=== PATIENT | male | born 1930 | race Caucasian/White ===

== ENCOUNTER 2017-05-03 14:18 | Emergency (ER) | payer MEDICARE ==
[~2017-05-03] VITALS: Ht 177.8 cm; Wt 78.8 kg
[~2017-05-03 14:18] MED LIST: ADALAT CC PO; ASPIR-8181 MG OR; CARVEDILOL3.125 MG PO; COREG6.25 MG OR; DIGOXIN0.25 MG OR; GLIPIZIDE5 MG PO; GLYB/METFO5 MG/500 M OR; LASIX 40 MG40 MG/TAB PO; LIPITOR20 MG PO; LISINOPRIL5 MG PO; METFORMIN500 MG PO; MONOPRIL10 MG OR; MULTI VIT OR; PERI-COLACE1 TAB OR; PLAVIX75 MG OR; PRAVASTATIN40 MG OR; PROCA PO
[2017-05-03] MEDS ORDERED: MIRALAX3350 N1 PO (17:21)
[2017-05-03] MEDS ORDERED: MAGNESIUM296 ML/BTL PO (17:21)
[2017-05-03] MEDS ORDERED: COLACE100 MG PO (17:21)
[2017-05-03 17:29] VITALS: BP 119/62
== END 2017-05-03 17:35 | disposition home or self-care (01) ==
LOC: ED 14:18
DX: K59.00 Constipation, unspecified (principal)

== ENCOUNTER 2017-07-27 23:33 | Observation (INO) | payer MEDICARE ==
[~2017-07-27] VITALS: Ht 177.8 cm; Wt 82.5 kg
[~2017-07-27 23:33] MED LIST changes: +COLACE100 MG PO; +MAGNESIUM296 ML/BTL PO; +MIRALAX3350 N1 PO
--- NOTE | 2017-07-28 00:04 | NUR ---
BROUGHT TO ROOM 11 VIA W/C. UNABLE TO RECONCILE MEDS AT THIS TIEM. PATIENT DID NOT BRING A MED LIST WITH HIM NOR THE ACTUAL MEDS.
[2017-07-28 00:49] LABS: HEMATOCRIT 36.8 % (39.0-50.0); HEMOGLOBIN 12.2 g/dl (14.0-18.0); IMMATURE GRANULOCYTES 0.4 % (0.0-1.0); MEAN CELL VOLUME 93.6 fL CALC (80.0-100.0); MEAN CORPUSCULAR HGB CONC 33.2 g/L CALC (32.0-36.0); NEUT# 7.27 thou/uL (1.82-7.42); RED BLOOD COUNT 3.93 mill/uL (4.70-6.10); RED CELL DISTRI WIDTH 13.2 % (11.5-15.5)
[2017-07-28 01:03] LABS: ALBUMIN 4.4 g/dL (3.2-5.0); BILIRUBIN, TOTAL 0.5 mg/dL (0.0-1.4); CALCIUM 9.6 mg/dL (8.4-10.2); CREATININE 1.7 mg/dL (0.7-1.3); POTASSIUM 4.4 mmol/l (3.5-5.1); TOTAL PROTEIN 7.2 g/dL (6.3-8.2)
--- NOTE | 2017-07-28 01:05 | NUR ---
#22 IV STARTED IN X 2 ATTEMPTS. PT TOLERATED WELL. PT RESTING IN BED. RESP EVEN AND UNLABORED. NO DISTRESS NOTED. A&O X 3. SKIN W/D. VSS. DENIES PAIN OR OTHER COMPLAINTS AT THIS TIME. INFORMED PT OF PLAN OF CARE AND CONTINUED WAIT TIME AND HE VERBALIZED UNDERSTANDING. CALL LIGHT IN REACH.
--- NOTE | 2017-07-28 01:27 | NUR ---
PT ASSISTED TO BEDSIDE TO USE URINAL. 450 CLEAR, YELLOW URINE OUT.
[2017-07-28 01:51] LABS: URINE BILIRUBIN - DIPSTICK NEGATIVE (NEGATIVE); URINE BLOOD DIPSTICK NEGATIVE (NEGATIVE); URINE CLARITY CLEAR; URINE COLOR YELLOW; URINE GLUCOSE - DIPSTICK NEGATIVE (NEGATIVE); URINE KETONE NEGATIVE (NEGATIVE); URINE LEUK ESTERASE TRACE (NEGATIVE); URINE NITRITE - DIPSTICK NEGATIVE (Negative); URINE PROTEIN - DIPSTICK NEGATIVE (NEG-TRACE); URINE UROBILINOGEN - DIPSTICK 0.2 E.U./dL (0.2)
--- NOTE | 2017-07-28 02:16 | NUR ---
REPORT CALLED TO Huseyin WINSTON LPN.
--- NOTE | 2017-07-28 02:20 | NUR ---
PT CONTINUES RESTING OIN BED W/ NO CHANGE IN ASSESSMENT. RESP REMAIN EVEN AND UNLABORED. DENIES PAIN. CALL LIGHT IN REACH.
--- NOTE | 2017-07-28 02:50 | NUR ---
Admission Note Report Given to: Huseyin WINSTON LPN Transported by: Wheelchair X Stretcher Transported with: X Nurse Transporter X Patent IV X O2 X Vamp Marker
[2017-07-28 03:13] VITALS: BP 140/80
--- NOTE | 2017-07-28 03:13 | NUR ---
86 yr old white male adm icu5 as [place] tele overflow. stood to weigh then to bed. denies resp diff. o2 cont per nc. lungs sound clear bilat. diagnostic cardiac sonographer shows sinus rhythm pvcs occas paced beats. #22 lt hand saline lock. history obtained per pt. oriented to room. fall precautions initiated.
--- NOTE | 2017-07-28 06:00 | NUR ---
awake. sitting on side of bed. denies resp diff. o2 cont.
--- NOTE | 2017-07-28 07:10 | NUR ---
PT SITTING ON THE SIDE OF THE BED, DENIES ANY PAIN OR SOB, A&O X3, PERRL, HR 76, RESP. 20, BP 110/46, O2 95% ON RA, LUNG SOUNDS CLEAR IN ALL SOARES, 22G LH IV SALINE LOCKED, NO REDNESS OR DRAINAGE AT SITE, STRONG RADIAL AND PEDAL PULSES, AM ASSESSMENT COMPLETE, SEE INTERVENTIONS, SAFETY MEASURES REINFORCED, CALL MATTHEW WITHIN REACH
--- NOTE | 2017-07-28 07:55 | NUR ---
PT SITTING UP IN THE RECLINER, TOLERATING WELL, SETUP ASSISTANCE PROVIDED WITH AM MEAL
[2017-07-28 08:00] VITALS: BP 110/46
--- NOTE | 2017-07-28 08:07 | NUR ---
PT SITTING IN THE RECLINER TOLERATING WELL, REMINDED PT TO CALL FOR ASSISTANCE WHEN WANTING TO GET UP DUE TO MONITORING EQUIPMENT AND PT'S SAFETY, PT VERBALIZES UNDERSTANDING, CALL MATTHEW WITHIN REACH
--- NOTE | 2017-07-28 09:00 | NUR ---
DR PARR AT BEDSIDE
--- NOTE | 2017-07-28 09:14 | NUR ---
CALLED DR PARR'S OFFICE SPOKE TO [facility] PER PT REQUEST TO LET THEM KNOW HE WAS IN THE HOSPITAL AND WOULDN'T BE MAKING HIS 9 AM APPOINTMENT
--- NOTE | 2017-07-28 09:18 | NUR ---
DR GALLOWAY AT BEDSIDE DISCUSSING PLAN OF CARE
--- NOTE | 2017-07-28 09:25 | NUR ---
DR GALLOWAY AT BEDSIDE DISCUSSING PLAN OF CARE
[2017-07-28] MEDS ORDERED: ENTRESTO 24-261 TAB PO (09:53)
[2017-07-28] MEDS ORDERED: ALDACTONE25 MG PO (09:54)
[2017-07-28] MEDS ORDERED: TRULICITY1.5 MG/0.5 SC (09:54)
[2017-07-28] MEDS ORDERED: TRESIBA FL100 UNIT/M SC (09:55)
[2017-07-28] MEDS ORDERED: LIPITOR20 MG PO (09:55)
--- NOTE | 2017-07-28 11:30 | NUR ---
DAUGHTER AT BEDSIDE
[2017-07-28 11:32] LABS: TSH, 3RD GENERATION 4.98 uIU/mL (0.47 - 4.68)
--- NOTE | 2017-07-28 11:40 | NUR ---
PT SITTING UP IN THE RECLINER WATCHING TV, VERBALIZES NO COMPLAINTS, SETUP ASSISTANCE PROVIDED WITH LUNCH, PT REMINDED TO CALL FOR ASSISTANCE, CALL MATTHEW WITHIN REACH
--- NOTE | 2017-07-28 14:00 | NUR ---
PT ARRIVED FROM ICU VIA WC ACCOMPANIED BY STAFF. IV SITE IS FREE FROM REDNESS OR EDEMA. CONTINUE TO OSBERVE AND MONITOR. SITTING UP IN THE CHAIR.
[2017-07-28 14:05] VITALS: BP 121/57
[2017-07-28 15:56] VITALS: BP 128/62
--- NOTE | 2017-07-28 18:00 | NUR ---
PT HAS BEEN IN THE SITTING IN THE CHAIR, AND THEN WILL BE IN BED. DAUGHTER FLORA CALLED AND CHECKED ON HER FATHER. IV SITE IS FREE FROM REDNESS OR EDEMA. CONTINUE TO OSBERVE AND MONITOR.
--- NOTE | 2017-07-28 18:11 | NUR ---
PT'S FAMILY STATED" PT HAS NOT ATE VERY MUCH IN A FEW DAYS." ENCOURAGED PT TO EAT SOUP.
--- NOTE | 2017-07-28 19:30 | NUR ---
BEDSIDE REPORT RECEIVED FROM KIANA MEADOWS. PT REPOSITIONING SELF FROM BED TO RECLINTER AT THIS TIME INDPENDENTLY. DENIES PAIN CURRENTLY. STATES THAT HE HAS EXERTIONAL SHORTNESS OF BREATH WITH 2L OF OXYGEN ON VIA NC. PLAN OF CARE DISCUSSED. PT ENCOURAGED TO VERBALIZE CONCERNS. STATES UNDESTANDING. SAFETY MEASURES IN PLACE. CALL LIGHT WITHIN REACH.
[2017-07-28 20:00] VITALS: BP 120/70
[2017-07-29] VITALS: BP 126/66
--- NOTE | 2017-07-29 | NUR ---
PT ASLEEP IN RECLINER AT THIS TIME. NO SIGNS OF DISTRESS NOTED. RESPIRATIONS EVEN AND UNLABORED ON OXYGEN. SAFETY MEASURES IN PLACE. CALL LIGHT WITHIN REACH.
--- NOTE | 2017-07-29 00:05 | NUR ---
IRASEMA,ER MONITOR REPORTED A 12 BEAT RUN OF V-TACH;UPON ENTERING THE ROOM PT ASYMPTOMATIC STATING "I WAS MOVING THE TRASH CAN";VS OBTAINED BY MONICA MOURA BP 131/64 HR 74;PT VOICES NO COMPLAINTS OF PAIN OR DISCOMFORTS;RESPIRATIONS EVEN AND UNLABORED;PT EDUCATED TO CALL FOR ASSISTANCE IF NEEDED;TELE MONITOR IN PLACE;CALL LIGHT IN REACH;WILL CONTINUE TO MONITOR
--- NOTE | 2017-07-29 01:42 | NUR ---
ER CALLED WITH TELEMETRY READING OF 8 RUNS OF VTACH AT 0135. PT ASLEEP AT THIS TIME WITH NO SIGNS OF DISCOMFORT. VS STABLE.
--- NOTE | 2017-07-29 03:18 | NUR ---
PT ASLEEP IN BED NOW. HAS NO COMPLIANTS OR REQUESTS AT THIS TIME. COUGH NOTED. INDEPENDENT IN ROOM. CALL LIGHT WITHIN REACH.
[2017-07-29 05:30] VITALS: BP 116/62
--- NOTE | 2017-07-29 05:43 | NUR ---
PT RESTING COMFORTABLY IN BED ON OXYGEN. USING URINAL AT BEDSIDE TO VOID. IV SITE TO LEFT HAND APPEARS HEALTHY AND FLUSHES. CONDITION APPEARS STABLE. CALL LIGHT WITHIN REACH.
[2017-07-29 06:35] LABS: HEMOGLOBIN 12.8 g/dl (14.0-18.0); IMMATURE GRANULOCYTES 0.4 % (0.0-1.0); MEAN CELL VOLUME 92.5 fL CALC (80.0-100.0); MEAN CORPUSCULAR HGB 31.1 pG CALC (26.0-32.0); MEAN CORPUSCULAR HGB CONC 33.7 g/L CALC (32.0-36.0); NEUT# 9.23 thou/uL (1.82-7.42); RED BLOOD COUNT 4.11 mill/uL (4.70-6.10); RED CELL DISTRI WIDTH 13.2 % (11.5-15.5)
[2017-07-29 06:52] LABS: ALBUMIN 4.2 g/dL (3.2-5.0); CALCIUM 9.3 mg/dL (8.4-10.2); CREATININE 1.6 mg/dL (0.7-1.3)
--- NOTE | 2017-07-29 08:05 | NUR ---
PT SITTING ON SIDE OF BED TO EAT BREAKFAST, DAUGHTER IN TO VISIT. PT ALERT AND ORIENTED X3, DENIES ANY PAIN AT THIS TIME. #22 IN LEFT HAND NO REDNESS OR EDEMATOUS NOTED. LUNG SOUNDS CLEAR BILATERALLY, PERRL, VITALS STABLE, STRONG PEDAL AND RADIAL PULSES, BLANKET WEAVER EQUAL. NO SWELLING TO EXTREMITIES. PT HAS HISTORY OF HEART SURGERY AND HAS A PACEMAKER. PT DENIES ANY SOB. PT DECLINES A SHOWER AT THIS TIME STATING " I WILL BE GOING HOME TODAY SO, I WILL SHOWER AT HOME." PT ENCOURAGED TO SHOWER THIS EVENING IF HE DOESNT RETURN HOME. PT VOICE UNDERSTANDING AND AGREEABLE. PT VOICING NO COMPLAINTS OR NEEDS AT THIS TIME AND ENCOURAGED TO USE CALL MATTHEW.
[2017-07-29 08:10] VITALS: BP 101/68
--- NOTE | 2017-07-29 08:25 | NUR ---
ASSESSMENT IS COMPLETED: IV SITE IS FREE FROM REDNESS OR EDEMA. TELE MONITOR IN PLACE. CONTINUE TO OBSERVE AND MONITOR.
--- NOTE | 2017-07-29 09:40 | NUR ---
PT UP TO RR TO HAVE A BM. NO O2 NEEDED WHILE USING RR. NO EXERTIONAL SOB NOTED. PT BACK TO BED. VOICING NO COMPLAINTS. CALL MATTHEW WITH IN REACH.
--- NOTE | 2017-07-29 11:26 | NUR ---
SPOKE WITH DAUGHTER AND INFORMED THAT THE DR IS STILL MAKING ROUNDS
[2017-07-29 11:35] VITALS: BP 126/70
--- NOTE | 2017-07-29 12:00 | NUR ---
TELE MONITOR READING SR WITH PVC'S 84 AND 70
--- NOTE | 2017-07-29 12:15 | NUR ---
PT IS IN THE ROOM. RELAXING IN BED WITH NO DISTRESS NOTED. IV SITE IS FREE FROM REDNESS OR EDEMA. CONTINUE TO OSBERVE AND MONITOR.
--- NOTE | 2017-07-29 13:19 | NUR ---
IN TO VISIT WITH PT.
[2017-07-29] MEDS ORDERED: KEFLEX500 MG PO (15:20)
--- NOTE | 2017-07-29 15:48 | NUR ---
called daughter and left a message re: pt being discharged.
--- NOTE | 2017-07-29 16:15 | NUR ---
Discharge instructions given. Patient verbalizes understanding of same. Discharged in stable condition via Wheelchair to Home with family. All belongings sent with pt.
--- NOTE | 2017-07-29 16:15 | NUR ---
IV SITE DISCONTINUED CATHETER INTACT, NO REDNESS OR EDEMA. DISCHARGE INSTRUCTIONS GIVEN AND VERBALIZED UNDERSTANDING.CONTINUE TO OSBERVE AND MONITOR.
--- NOTE | 2017-07-29 16:18 | NUR ---
Talked to patients about his medical problems and medications before doctor signed a discharged order. Informed pt. about Venofer for his kidney problems and some of side effect of this medications. Informed pt. about two medications that he had to treat fluid in lungs include spironolactone and furosemide. Discussed to him about side effects of these medications. inform pt. about his insulin Levemir and possible side effects of hypoglycemia when on this medication. Pt. reported not have any side effects with his medications. Pt. has no questions to pharmacy at this time.
== END 2017-07-29 16:25 | disposition home or self-care (01) ==
LOC: ED 23:33 → ED-I 07-28 01:00 → ED 07-28 02:02 → ICU 07-28 02:03 → MS2 07-28 13:52
PROVIDERS: Emergency Medicine; Internal Medicine; Internal Medicine Nephrology; Nurse Practitioner Family; ADMIT Internal Medicine; ATTEND Internal Medicine
DX: J20.9 Acute bronchitis, unspecified (principal); I13.0 Hypertensive heart and chronic kidney disease with heart failure and stage 1 through stage 4 chronic kidney disease, or unspecified chronic kidney disease; I50.22 Chronic systolic (congestive) heart failure; E11.22 Type 2 diabetes mellitus with diabetic chronic kidney disease; N18.3 Chronic kidney disease, stage 3 (moderate); I25.10 Atherosclerotic heart disease of native coronary artery without angina pectoris; I25.5 Ischemic cardiomyopathy; E78.5 Hyperlipidemia, unspecified; N17.9 Acute kidney failure, unspecified; E11.40 Type 2 diabetes mellitus with diabetic neuropathy, unspecified; D50.9 Iron deficiency anemia, unspecified; D63.1 Anemia in chronic kidney disease; E83.39 Other disorders of phosphorus metabolism; M54.30 Sciatica, unspecified side; Z79.4 Long term (current) use of insulin; Z95.810 Presence of automatic (implantable) cardiac defibrillator; Z87.891 Personal history of nicotine dependence; Z95.1 Presence of aortocoronary bypass graft; Z95.5 Presence of coronary angioplasty implant and graft
CPT/HCPCS: J1756

== ENCOUNTER 2017-08-14 02:06 | Inpatient (IN) | payer MEDICARE ==
[~2017-08-14] VITALS: Ht 177.8 cm; Wt 78.0 kg
[~2017-08-14 02:06] MED LIST changes: +ALDACTONE25 MG PO; +ENTRESTO 24-261 TAB PO; +KEFLEX500 MG PO; +TRESIBA FL100 UNIT/M SC; +TRULICITY1.5 MG/0.5 SC
--- NOTE | 2017-08-14 02:18 | NUR ---
PT AMBULATED TO RM 12 W/ STEADY GAIT.
[2017-08-14 03:17] LABS: HEMATOCRIT 35.2 % (39.0-50.0); HEMOGLOBIN 11.7 g/dl (14.0-18.0); IMMATURE GRANULOCYTES 0.4 % (0.0-1.0); MEAN CELL VOLUME 93.9 fL CALC (80.0-100.0); MEAN CORPUSCULAR HGB 31.2 pG CALC (26.0-32.0); MEAN CORPUSCULAR HGB CONC 33.2 g/L CALC (32.0-36.0); NEUT# 8.22 thou/uL (1.82-7.42); RED BLOOD COUNT 3.75 mill/uL (4.70-6.10); RED CELL DISTRI WIDTH 13.5 % (11.5-15.5)
[2017-08-14 03:37] LABS: INTERNATIONAL NORMALIZED RATIO 1.1 RATIO (0.7-1.3); PROTHROMBIN TIME 11.9 SECONDS (9.0-12.5)
[2017-08-14 03:42] LABS: ALBUMIN 4.2 g/dL (3.2-5.0); CALCIUM 10.3 mg/dL (8.4-10.2); CREATININE 1.5 mg/dL (0.7-1.3); POTASSIUM 3.8 mmol/l (3.5-5.1); TOTAL PROTEIN 7.2 g/dL (6.3-8.2)
--- NOTE | 2017-08-14 04:40 | NUR ---
PT VOIDS 300CC CLEAR STRAW COLORED URINE.NO LONGER COUGHING NO RESP DIFF OR DISTRESS
[2017-08-14 05:11] LABS: URINE BILIRUBIN - DIPSTICK NEGATIVE (NEGATIVE); URINE BLOOD DIPSTICK NEGATIVE (NEGATIVE); URINE COLOR YELLOW; URINE GLUCOSE - DIPSTICK NEGATIVE (NEGATIVE); URINE KETONE NEGATIVE (NEGATIVE); URINE LEUK ESTERASE NEGATIVE (NEGATIVE); URINE NITRITE - DIPSTICK NEGATIVE (Negative); URINE PROTEIN - DIPSTICK NEGATIVE (NEG-TRACE); URINE UROBILINOGEN - DIPSTICK 0.2 E.U./dL (0.2)
[2017-08-14 05:18] LABS: URINE CLARITY CLEAR
--- NOTE | 2017-08-14 05:38 | NUR ---
PHONE REPORT TO NURSE MIRAMONTES ON MS
--- NOTE | 2017-08-14 05:43 | NUR ---
PT VOIDED ADDITIONAL 550 CC CLEAR URINE
--- NOTE | 2017-08-14 05:43 | NUR ---
TO FLOOR VIA STRETCHER IN STABLE CONDITION
[2017-08-14 05:50] VITALS: BP 123/61
--- NOTE | 2017-08-14 05:50 | NUR ---
PT ARRIVED TO FLOOR WITH ER STAFF. AMBULATED TO SCALE; ASSISTED TO BED. VITAL SIGNS OBTAINED. PT DENIES PAIN OR DISCOMFORT. RESP EVEN AND UNLABORED. NO DISTRESS NOTED. TELE IN PLACE. ABD SOFT; ACTIVE BOWEL SOUNDS. PT STATES BM YESTERDAY. PEDAL PULSES PALPATED BILAT. IV LH FLUSHED; NO REDNESS OR EDEMA NOTED. PT ASSISTED TO BEDSIDE CHAIR; REPOSITIONED FOR COMFORT. FREQUENT ROUNDS MADE. PT ORIENTED TO ROOM AND CALL LIGHT SYSTEM. CALL LIGHT WITHIN REACH.
--- NOTE | 2017-08-14 07:00 | NUR ---
SHIFT CHANGE REPORT MELO MIRAMONTES PT AWAKE ALERT AND ORIENTED SITTING UP IN RECLINER, NO C/O DISCOMFORT BUT COUGHING PERIODICALLY AND EXPECTORATING THICK YELLOW SPUTUM, TELE MONITOR IN PLACE, ALL NEEDS ADDRESSED, CALL MATTHEW IN REACH.
[2017-08-14] MEDS ORDERED: Levaquin PO (10:37)
[2017-08-14] MEDS ORDERED: ROBITUSSIN AC10 ML PO (10:37)
[2017-08-14 10:58] VITALS: BP 115/60
--- NOTE | 2017-08-14 13:43 | NUR ---
Discharge instructions given. Patient verbalizes understanding of same. Discharged in stable condition via Wheelchair to Home with friend. All belongings sent with pt.
== END 2017-08-14 13:43 | disposition home or self-care (01) | DRG 202 ==
LOC: ED 02:06 → ED-I 04:32 → ED 05:31 → MS2 05:32
PROVIDERS: Emergency Medicine; ADMIT Internal Medicine; ATTEND Internal Medicine
DX: J20.9 Acute bronchitis, unspecified (principal); I13.0 Hypertensive heart and chronic kidney disease with heart failure and stage 1 through stage 4 chronic kidney disease, or unspecified chronic kidney disease; E11.22 Type 2 diabetes mellitus with diabetic chronic kidney disease; E11.40 Type 2 diabetes mellitus with diabetic neuropathy, unspecified; I50.22 Chronic systolic (congestive) heart failure; N18.3 Chronic kidney disease, stage 3 (moderate); I25.10 Atherosclerotic heart disease of native coronary artery without angina pectoris; E78.5 Hyperlipidemia, unspecified; Z95.1 Presence of aortocoronary bypass graft; Z95.5 Presence of coronary angioplasty implant and graft; Z87.891 Personal history of nicotine dependence

== ENCOUNTER 2019-02-04 06:32 | Emergency (ER) | payer MEDICARE ==
[~2019-02-04] VITALS: Ht 177.8 cm; Wt 88.2 kg
[~2019-02-04 06:32] MED LIST changes: +Levaquin PO; +ROBITUSSIN AC10 ML PO
[2019-02-04 07:43] LABS: HEMATOCRIT 38.1 % (39.0-50.0); HEMOGLOBIN 12.4 g/dl (14.0-18.0); IMMATURE GRANULOCYTES 0.4 % (0.0-5.0); MEAN CELL VOLUME 92.9 fL CALC (80.0-100.0); MEAN CORPUSCULAR HGB 30.2 pG CALC (26.0-32.0); MEAN CORPUSCULAR HGB CONC 32.5 g/L CALC (32.0-36.0); NEUT# 8.37 thou/uL (1.82-7.42); RED BLOOD COUNT 4.1 mill/uL (4.70-6.10); RED CELL DISTRI WIDTH 13.3 % (11.5-15.5)
[2019-02-04 07:47] LABS: ALBUMIN 4.4 g/dL (3.2-5.0); CREATININE 1.8 mg/dL (0.7-1.3); POTASSIUM 4.1 mmol/l (3.5-5.1); TOTAL PROTEIN 7.7 g/dL (6.3-8.2)
[2019-02-04 07:54] LABS: BILIRUBIN, TOTAL 0.9 mg/dL (0.0-1.4)
[2019-02-04] MEDS ORDERED: PROVENTIL HFA IN (08:30)
[2019-02-04] MEDS ORDERED: LEVAQUIN500 MG PO (08:30)
[2019-02-04 08:34] VITALS: BP 153/62
== END 2019-02-04 08:36 | disposition home or self-care (01) ==
LOC: ED 06:32
PROVIDERS: Family Medicine
DX: J40 Bronchitis, not specified as acute or chronic (principal); J06.9 Acute upper respiratory infection, unspecified; I10 Essential (primary) hypertension; R06.02 Shortness of breath

== ENCOUNTER 2021-09-27 10:22 | Emergency (ER) | payer MEDICARE ==
[~2021-09-27] VITALS: Ht 177.8 cm; Wt 88.0 kg
[~2021-09-27 10:22] MED LIST changes: +LEVAQUIN500 MG PO; +PROVENTIL HFA IN; +TRAMADOL HCL50 MG PO
[2021-09-27 11:01] LABS: HEMOGLOBIN 14.3 g/dl (14.0-18.0); IMMATURE GRANULOCYTES 0.2 % (0.0-5.0); MEAN CELL VOLUME 97.2 fL CALC (80.0-100.0); MEAN CORPUSCULAR HGB 30.9 pG CALC (26.0-32.0); MEAN CORPUSCULAR HGB CONC 31.8 g/dL CAL (32.0-36.0); NEUT# 6.44 thou/uL (1.82-7.42); RED BLOOD COUNT 4.63 mill/uL (4.70-6.10); RED CELL DISTRI WIDTH 13.7 % (11.5-15.5)
[2021-09-27 11:32] LABS: ALBUMIN 4.6 g/dL (3.2-5.0); BILIRUBIN, TOTAL 0.9 mg/dL (0.0-1.4); CREATININE 1.6 mg/dL (0.7-1.3); POTASSIUM 4.3 mmol/l (3.5-5.1); TOTAL PROTEIN 8.3 g/dL (6.3-8.2)
[2021-09-27] MEDS ORDERED: NOVOLIN 70/30 SC (11:38)
[2021-09-27] MEDS ORDERED: AMOX/K CLAV875 M1 PO (13:27)
[2021-09-27] MEDS ORDERED: ZPAK PO (13:27)
[2021-09-27 13:30] VITALS: BP 156/85
== END 2021-09-27 13:44 | disposition home or self-care (01) ==
LOC: ED 10:22
PROVIDERS: Family Medicine
DX: J18.9 Pneumonia, unspecified organism (principal); I10 Essential (primary) hypertension; E11.9 Type 2 diabetes mellitus without complications; E78.5 Hyperlipidemia, unspecified; I25.2 Old myocardial infarction; Z95.1 Presence of aortocoronary bypass graft; Z95.5 Presence of coronary angioplasty implant and graft; Z95.0 Presence of cardiac pacemaker; Z79.4 Long term (current) use of insulin; Z20.822 Contact with and (suspected) exposure to COVID-19
CPT/HCPCS: Q9967

== ENCOUNTER 2021-11-30 17:40 | Inpatient (IN) | payer MEDICARE ==
[~2021-11-30] VITALS: Ht 177.8 cm; Wt 92.0 kg
[~2021-11-30 17:40] MED LIST changes: +ADULT ASPIRIN R81 MG PO; +AMOX/K CLAV875 M1 PO; -ASPIR-8181 MG OR; -MULTI VIT OR; +MULTI VIT PO; +NOVOLIN 70/30 SC; +ZPAK PO
[2021-11-30 18:16] VITALS: BP 106/75
--- NOTE | 2021-11-30 18:26 | NUR ---
PT WHEELED BACK TO ROOM 13 ACCOMPANIED BY DAUGHTER. NO ACUTE DISTRESS. VITALLY STABLE. PROVIDER AT BEDSIDE. EKG COMPLETED AT THIS TIME.
[2021-11-30 19:00] VITALS: BP 119/63
[2021-11-30 20:14] LABS: HEMATOCRIT 40.2 % (39.0-50.0); HEMOGLOBIN 12.9 g/dl (14.0-18.0); IMMATURE GRANULOCYTES 0.4 % (0.0-5.0); MEAN CELL VOLUME 95.9 fL CALC (80.0-100.0); MEAN CORPUSCULAR HGB 30.8 pG CALC (26.0-32.0); MEAN CORPUSCULAR HGB CONC 32.1 g/dL CAL (32.0-36.0); NEUT# 5.8 thou/uL (1.82-7.42); RED BLOOD COUNT 4.19 mill/uL (4.70-6.10); RED CELL DISTRI WIDTH 15.2 % (11.5-15.5)
--- NOTE | 2021-11-30 20:30 | NUR ---
PT STABLE IN RM
[2021-11-30 20:32] LABS: ALBUMIN 3.8 g/dL (3.2-5.0); BILIRUBIN, TOTAL 0.8 mg/dL (0.0-1.4); CREATININE 2.2 mg/dL (0.7-1.3); POTASSIUM 3.5 mmol/l (3.5-5.1); TOTAL PROTEIN 6.6 g/dL (6.3-8.2)
[2021-11-30 21:01] VITALS: BP 116/68
[2021-11-30] MEDS ORDERED: COREG12.5 MG PO (21:27)
[2021-11-30] MEDS ORDERED: XARELTO20 MG PO (21:27)
[2021-11-30] MEDS ORDERED: NEURONTIN100 MG PO (21:28)
--- NOTE | 2021-11-30 21:43 | NUR ---
PATIENT ADMITTED TO [facility] TO ROOM 280 VIA STRETCHER. ALERT AND ORIENTED. ABLE TO MAKE NEEDS KNOWN. SCOOTED SELF TO ROOM BED FROM STRETCHER. ORIENTED PATIENT TO ROOM, CALL LIGHT, AND SURROUNDINGS. ASSESSMENT COMPLETE. DRY RASH LIKE AREAS OBSERVED TO BLE. PATIENT STATES, ''IT DOESNT ITCH''. NO DRAINAGE FROM AREAS OBSERVED. PATIENT DENIES HAVING ANY PAIN AT ALL. PATIENT REFUSED PAIN MEDICATION. INSTRUCTED PATIENT TO NOT DUMP URINAL OUT WE NEED TO RECORD HIS OUTPUT FOR THE WHOLE SHIFT. ALSO INFORMED PATIENT THAT WE NEED TO RECORD WHATEVER HE DRINKS WELL. #22 RT. UPPER FOREARM PATENT. BED IN LOWEST POSITION. CALL LIGHT IN REACH.
[2021-11-30 21:55] VITALS: BP 122/59
--- NOTE | 2021-11-30 22:00 | NUR ---
PT TRANSPORTED TO RM 280 BEDSIDE SHIFTREPORT GIVEN
--- NOTE | 2021-12-01 00:34 | NUR ---
PATIENT RESTING IN BED. NO COMPLAINTS AT THIS TIME. REMINDED PATIENT TO USE CALL LIGHT WHEN ASSISTANCE NEEDED FOR SAFETY PURPOSES. BED REMAINS IN LOW POSITION. CALL MATTHEW IN REACH.
[2021-12-01 04:34] VITALS: BP 124/47
--- NOTE | 2021-12-01 05:00 | NUR ---
PATIENT RESTING IN BED. NO SIGNS OF DISTRESS NOTED. SITS ON SIDE OF BED AT TIMES TO REPOSITION OR USE URINAL. CALL LIGHT AND BELONGINGS WITHIN REACH.
[2021-12-01 06:13] LABS: MAGNESIUM 2.4 mg/dL (1.6-2.3); POTASSIUM 3.9 mmol/l (3.5-5.1)
[2021-12-01 07:15] VITALS: BP 115/76
--- NOTE | 2021-12-01 08:00 | NUR ---
GOT REPORT FROM RECORD PRESS OPERATOR NURSE. PATIENT ASSESSED, AOX3, PATIENT SITTING IN CHAIR, PATIENT DENIES ANY SOB OR CHEST PAIN. PATIENT STATES THAT HE IS JUST TIRED THAT HE HAS NOT REALLY SLEPT. PATIENT STATES THAT THE BED IS UNCOMFORTABLE AND WANTS TO SLEEP IN CHAIR TONIGHT. CALL LIGHT AND BEDSIDE TABLE IN REACH OF PATIENT.
[2021-12-01] MEDS ORDERED: CARVEDILOL6.25 MG PO (10:37)
[2021-12-01] MEDS ORDERED: ATORVASTATIN CA40 MG PO (10:38)
[2021-12-01] MEDS ORDERED: NOVOLIN N100 UNIT SC (10:41)
[2021-12-01] MEDS ORDERED: XARELTO15 MG PO (10:42)
[2021-12-01 10:43] VITALS: BP 102/55
[2021-12-01] MEDS ORDERED: LASIX 40 MG TAB40 MG PO (10:43)
--- NOTE | 2021-12-01 12:00 | NUR ---
PATIENT IS IN CHAIR. PATIENT HAS DAUGHTER AND GRANDDAUGHTER AT BEDSIDE. PATIENT HAS NO SXS OF DISTRESS.
[2021-12-01 15:25] VITALS: BP 116/72
--- NOTE | 2021-12-01 16:00 | NUR ---
PATIENT IS SLEEPING IN RECLINER AT THIS TIME. BREATHING EVEN AND NO SXS OF DISTRESS.
[2021-12-01 19:13] VITALS: BP 115/60
--- NOTE | 2021-12-01 20:00 | NUR ---
PATIENT SITTING IN RECLINER AT THIS TIME WITH FEET ELEVATED. AWAKE ALERT AND ORIENTEDX3. PATIENT WITH NO COMPLAINTS AT THIS TIME. TELE MONITOR IN PLACE WITH LAST READING A-FIB 88. SALINE LOCK TO RIGHT FOREARM INTACT AND HEALTHY AT THIS TIME. BLE SWELLING NOTED. PULSES ARE PALPABLE. INSTRUCTED PATIENT TO USE URINAL FOR ACCURATE I&O. LAST BM WAS YESTERDAY. SAFETY PRECAUTIONS REINFORCED. CALL LIGHT IN REACH. WILL CONT TO MONITOR.
--- NOTE | 2021-12-02 | NUR ---
PATIENT REMAINS UP IN RECLINER-STATES THAT HE CAN'T SLEEP IN THE BEDS HERE. TELE MONITOR IN PLACE. PATIENT WITH FEET ELEVATED WHILE UP IN RECLINER. CALL LIGHT IN REACH. WILL CONT TO MONITOR.
[2021-12-02 00:09] VITALS: BP 118/62
[2021-12-02 03:33] VITALS: BP 96/62
--- NOTE | 2021-12-02 03:37 | NUR ---
PATIENT CONT TO SIT UP IN RECLINER-STATES THAT HE CAN'T SLEEP IN THE BED HERE. VS TAKEN AND RECORDED. TELE MONITOR IN PLACE-LAST READING WAS A-FIB 80'S. C/O NECK AND UPPER BACK PAIN-MEDICATED WITH TYLENOL 650MG PO FOR PAIN. SAFETY PRECAUTIONS REINFORCED. CALL LIGHT IN REACH. WILL CONT TO MONITOR.
[2021-12-02 04:00] VITALS: BP 96/62
[2021-12-02 06:26] LABS: CREATININE 1.9 mg/dL (0.7-1.3); MAGNESIUM 2.5 mg/dL (1.6-2.3); POTASSIUM 3.6 mmol/l (3.5-5.1)
[2021-12-02 06:49] VITALS: BP 124/76
[2021-12-02] MEDS ORDERED: LASIX 40 MG TAB40 MG PO (07:40)
[2021-12-02] MEDS ORDERED: NOVOLIN N100 UNIT SC (07:41)
[2021-12-02] MEDS ORDERED: XALATAN0.005 % OU (07:45)
--- NOTE | 2021-12-02 08:00 | NUR ---
GOT REPORT FROM CUPBOARD BUILDER NURSE. PATIENT ASSESSED, PATIENT IS SITTING IN CHAIR EATING BREAKFAST. PATIENT STATES THAT HE DIDNT GET ANY SLEEP LAST NIGHT. PATIENT STATES THAT HE FEELS DIRTY. I OFFERED TO HELP HIM SHOWER BUT PATIENT WANTS TO WAIT TILL HE SEES THE DOCTOR. HE STATES IF HE HE IS STAYING ANOTHER NIGHT THEN HE WILL HAVE HIS DAUGHTER BRING HIM CLOTHES, HE DOES NOT WANT TO WEAR HOSPITAL GOWN. IF HE LEAVES TODAY THEN HE WILL WAIT TO SHOWER AT HOME. PATIENT STATES THAT IS FEELING GOOD BESIDES BEING TIRED. NO SXS OF DISTRESS. CALL LIGHT AND BEDSIDE TABLE WITHIN REACH. ADVISED TO CALL IF HE NEEDED ANYTHING.
--- NOTE | 2021-12-02 12:00 | NUR ---
PATIENT IS IN RECLINER NAPPING. BREATHING EVEN, PATIENT HAS NO SXS OF DISTRESS. CALL LIGHT AND BEDSIDE TABLE WITHIN REACH OF PATIENT.
[2021-12-02 14:26] VITALS: BP 113/67
--- NOTE | 2021-12-02 16:00 | NUR ---
PATIENT SITTING IN CHIAR, HAS FRIEND AT BEDSIDE. PATIENT STATES THAT HE IS NOT IN ANY DISTRESS OR DISCOMFORT. ADVISED IF HE NEEDED ANYTHING. PATIENT VERBALIZED UNDERSTANDING.
[2021-12-02 18:37] VITALS: BP 111/50
--- NOTE | 2021-12-02 20:00 | NUR ---
PATIENT SITTING UP IN RECLINER AT THIS TIME-AWAKE ALERT AND ORIENTEDX3. ENCOURAGED PATIENT TO ELEVATE HIS LEGS WHEN SITTING UP BUT STATES THAT IT HURTS HIS LEGS WHEN HE DOES THAT. EXPLAINED TO THE PATIENT THE REASON TO ELEVATE HIS LEGS TO ASSIST WITH DECREASING SWELLING BUT NOT ELEVATING AT THIS TIME. PATIENT WITH TELE MONITOR IN PLACE WITH LAST READING PACED-93%. SALINE LOCK TO RIGHT FOREARM INTACT. VOIDING YELLOW URINEIN URINAL FOR STRICT I&O. STATES THAT HE DID HAVE BM TODAY. ABD IS DISTENDED WITH ACTIVE BS. BLE SWELLING IS SLIGHTLY IMPROVED FORM YESTERDAY. SAFETY PRECAUTIONS REINFORCED. CALL LIGHT IN REACH. WILL CONT TO MONITOR.
--- NOTE | 2021-12-02 23:49 | NUR ---
PATIENT REMAINS UP IN RECLINER AT THIS TIME-EYES ARE CLOSED AND RESPS ARE EVEN AND UNLABORED. TELE MONITOR IN PLACE. PATIENT STATED EARLKIER THAT HE CAN'T SLEEP IN OUR BEDS. CALL LIGHT IN REACH. WILL CONT TO MONITOR.
[2021-12-03] VITALS (7 sets, daily range): BP systolic 100–144; BP diastolic 51–72
--- NOTE | 2021-12-03 04:26 | NUR ---
PATIENT REMAINS UP IN THE RECLINER WITH EYES CLOSED. PATIENT RESTING BETTER TONIGHT THAN LAST NIGHT. NOT RESTLESS TONIGHT LAST NIGHT. TELE MONITOR IN PLACE WITH LAST READING PACED-82. CALL LIGHT IN REACH. WILL CONT TO MONITOR.
[2021-12-03 06:26] LABS: CREATININE 1.8 mg/dL (0.7-1.3); MAGNESIUM 2.6 mg/dL (1.6-2.3); POTASSIUM 3.9 mmol/l (3.5-5.1)
--- NOTE | 2021-12-03 08:06 | NUR ---
ASSESSMENT AND VITALS ALLOWED. TELE MONITOR IN PLACE. STATES NO PAIN. IV 22G R INNER FA. FLUSHED. FALL/SAFTEY PRECAUTION IN PLACE. CALL LIGHT WITHIN REACH.
--- NOTE | 2021-12-03 12:11 | NUR ---
PT EATING LUNCH. NO DISTRESS NOTED. FALL/SAFTEY PRECAUTION IN PLACE. CALL LIGHT WITHIN REACH
--- NOTE | 2021-12-03 17:34 | NUR ---
PT RESTING IN RECLINER. STATES NO PAIN AT THIS TIME. TELE MONITOR IN PLACE. IV PATENT. FALL/SAFTEY PRECAUTION IN PLACE. CALL LIGHT IS WITHIN REACH.
--- NOTE | 2021-12-04 01:40 | NUR ---
PT INFORMED ME THAT HE DIDN'T FEEL RIGHT AND HE REQUESTED TO HAVE HIS GLUCOSE CHECKED. GLUCOSE WAS CHECKED AND IT WAS 114. PT REQUESTED TO HAVE SOME APPLE JUICE AND JUICE WAS GIVEN. PT STATED HE FELT BETTER. WILL CONTINUE TO MONITOR.
[2021-12-04 03:30] VITALS: BP 131/51
[2021-12-04 05:08] LABS: CREATININE 1.7 mg/dL (0.7-1.3); MAGNESIUM 2.6 mg/dL (1.6-2.3); POTASSIUM 3.8 mmol/l (3.5-5.1)
[2021-12-04 06:54] VITALS: BP 123/62
--- NOTE | 2021-12-04 07:41 | NUR ---
PATIENT RESTING IN BED. ASSESSMENT ALLOWED. IV PATENT FLUSHED SL. PATIENT STATES NO PAIN. TELEMONITOR IN PLACE CONTINOUS MONITORING BY ED. FALL SAFETY PRECAUTIONS IN PLACE, CALL LIGHT WITHIN REACH.
[2021-12-04 10:25] VITALS: BP 122/73
[2021-12-04 14:48] VITALS: BP 108/60
--- NOTE | 2021-12-04 14:56 | NUR ---
PATIENTRESTING ON RECLINER. NO PAIN CONPLAINTS AT THIS TIME. NO DISTRESS NOTED NOR VERBALIZED. FALL PRECAUTIONS IN PLACE, CALL LIGHT WITHIN REACH.
--- NOTE | 2021-12-04 18:21 | NUR ---
PT SITTING IN RECLINER, STATES NO PAIN. TELE MONITOR IN PLACE. IV LFA 22G PATENT. FALL/SAFTEY PRECAUTION IN PLACE. CALL LIGHT WITHIN REACH.
--- NOTE | 2021-12-04 19:15 | NUR ---
PT IS SITTING IN RECLINER. ASSESSMENT COMPLETED AT THIS TIME. PT IS C/O RIGHT SHOULDER PAIN BUT DOES NOT WANT ANYTHING FOR PAIN AT THIS TIME. WILL CONTINUE TO MONITOR.
[2021-12-04 19:30] VITALS: BP 109/59
[2021-12-05 00:06] VITALS: BP 112/61
--- NOTE | 2021-12-05 01:00 | NUR ---
PT REQUESTED SOME WATER. PT IS RESTING IN THE RECLINER CHAIR WITH NO CURRENT COMPLAINTS. WATER WAS GIVEN.
[2021-12-05 04:34] VITALS: BP 106/57
[2021-12-05 07:05] VITALS: BP 111/59
--- NOTE | 2021-12-05 08:00 | NUR ---
PT SITTING IN RECLINER. STATES NO PAIN. IV LFA FLUSHED. ASSESSMENT ALLOWED. FALL/SAFTEY PRECAUTIONS IN PLACE. CALL LIGHT WITHIN REACH.
[2021-12-05 08:52] LABS: CREATININE 1.8 mg/dL (0.7-1.3)
[2021-12-05 10:09] VITALS: BP 116/68
[2021-12-05] MEDS ORDERED: METOLAZONE2.5 MG PO (11:18)
[2021-12-05] MEDS ORDERED: BUMETANIDE2 MG PO (11:18)
--- NOTE | 2021-12-05 13:23 | NUR ---
Discharge instructions given. Patient verbalizes understanding of same. Discharged in stable condition via Wheelchair to with staff. All belongings sent with pt. TELEMONITOR REMOVED.
[2021-12-12 05:16] VITALS: BP 136/55
== END 2021-12-05 13:13 | DRG 682 ==
LOC: ED 17:40 → ED-I 20:56 → MS2 21:06 → ED 21:06 → MS2 21:06
PROVIDERS: Family Medicine; ADMIT Internal Medicine; ATTEND Internal Medicine
DX: I12.9 Hypertensive chronic kidney disease with stage 1 through stage 4 chronic kidney disease, or unspecified chronic kidney disease (principal); I50.23 Acute on chronic systolic (congestive) heart failure; E11.22 Type 2 diabetes mellitus with diabetic chronic kidney disease; N18.30 Chronic kidney disease, stage 3 unspecified; I48.0 Paroxysmal atrial fibrillation; I25.10 Atherosclerotic heart disease of native coronary artery without angina pectoris; E78.5 Hyperlipidemia, unspecified; I25.5 Ischemic cardiomyopathy; I25.2 Old myocardial infarction; Z95.5 Presence of coronary angioplasty implant and graft; Z95.1 Presence of aortocoronary bypass graft; Z79.4 Long term (current) use of insulin; Z23 Encounter for immunization; Z79.01 Long term (current) use of anticoagulants; Z95.810 Presence of automatic (implantable) cardiac defibrillator; Z87.891 Personal history of nicotine dependence; Z20.822 Contact with and (suspected) exposure to COVID-19

== ENCOUNTER 2021-12-12 02:25 | Observation (INO) | payer MEDICARE ==
[2021-12-12] VITALS (10 sets, daily range): BP systolic 100–126; BP diastolic 47–69
[~2021-12-12] VITALS: Ht 177.8 cm; Wt 87.0 kg
[~2021-12-12 02:25] MED LIST changes: +ATORVASTATIN CA40 MG PO; +BUMETANIDE2 MG PO; +COREG12.5 MG PO; +LASIX 40 MG TAB40 MG PO; +METOLAZONE2.5 MG PO; +NEURONTIN100 MG PO; +NOVOLIN N100 UNIT SC; +XALATAN0.005 % OU; +XARELTO15 MG PO; +XARELTO20 MG PO
[2021-12-12 03:15] LABS: HEMOGLOBIN 12.7 g/dl (14.0-18.0); IMMATURE GRANULOCYTES 0.1 % (0.0-5.0); MEAN CELL VOLUME 96.6 fL CALC (80.0-100.0); MEAN CORPUSCULAR HGB 30.7 pG CALC (26.0-32.0); MEAN CORPUSCULAR HGB CONC 31.8 g/dL CAL (32.0-36.0); NEUT# 5.56 thou/uL (1.82-7.42); RED BLOOD COUNT 4.14 mill/uL (4.70-6.10)
[2021-12-12 03:32] LABS: ALBUMIN 3.8 g/dL (3.2-5.0); CREATININE 2.2 mg/dL (0.7-1.3); TOTAL PROTEIN 6.7 g/dL (6.3-8.2)
[2021-12-12 03:35] LABS: BILIRUBIN, TOTAL 1.2 mg/dL (0.0-1.4); POTASSIUM 3.1 mmol/l (3.5-5.1)
[2021-12-12 04:07] LABS: URINE BILIRUBIN - DIPSTICK NEGATIVE (NEGATIVE); URINE BLOOD DIPSTICK NEGATIVE (NEGATIVE); URINE COLOR YELLOW; URINE GLUCOSE - DIPSTICK NEGATIVE (NEGATIVE); URINE KETONE NEGATIVE (NEGATIVE); URINE LEUK ESTERASE NEGATIVE (NEGATIVE); URINE PROTEIN - DIPSTICK NEGATIVE (NEG-TRACE); URINE UROBILINOGEN - DIPSTICK 0.2 E.U./dL (0.2)
[2021-12-12 04:13] LABS: URINE NITRITE - DIPSTICK NEGATIVE (Negative)
== END 2021-12-12 13:30 ==
LOC: ED 02:25 → ED-I 04:28 → ED 04:38 → MS2 04:39 → ED 04:47 → MS2 04:47
PROVIDERS: Emergency Medicine; ADMIT Hospitalist; ATTEND Hospitalist
DX: F51.05 Insomnia due to other mental disorder (principal); F06.4 Anxiety disorder due to known physiological condition; E87.6 Hypokalemia; T50.2X5A Adverse effect of carbonic-anhydrase inhibitors, benzothiadiazides and other diuretics, initial encounter; I13.0 Hypertensive heart and chronic kidney disease with heart failure and stage 1 through stage 4 chronic kidney disease, or unspecified chronic kidney disease; I50.22 Chronic systolic (congestive) heart failure; E11.22 Type 2 diabetes mellitus with diabetic chronic kidney disease; N18.4 Chronic kidney disease, stage 4 (severe); J96.11 Chronic respiratory failure with hypoxia; I25.10 Atherosclerotic heart disease of native coronary artery without angina pectoris; E78.5 Hyperlipidemia, unspecified; I42.9 Cardiomyopathy, unspecified; I25.2 Old myocardial infarction; Z99.81 Dependence on supplemental oxygen; Z95.1 Presence of aortocoronary bypass graft; Z95.5 Presence of coronary angioplasty implant and graft; Z95.810 Presence of automatic (implantable) cardiac defibrillator; Z79.4 Long term (current) use of insulin; Z87.891 Personal history of nicotine dependence; Z20.822 Contact with and (suspected) exposure to COVID-19
CPT/HCPCS: G0378

== ENCOUNTER 2021-12-22 01:10 | Emergency (ER) | payer MEDICARE ==
[~2021-12-22] VITALS: Ht 177.8 cm; Wt 86.0 kg
[2021-12-22] VITALS (20 sets, daily range): BP systolic 81–114; BP diastolic 40–74
[~2021-12-22 01:10] MED LIST changes: +CARVEDILOL6.25 MG PO
[2021-12-22 01:49] LABS: HEMATOCRIT 38.4 % (39.0-50.0); HEMOGLOBIN 12.3 g/dl (14.0-18.0); IMMATURE GRANULOCYTES 0.6 % (0.0-5.0); MEAN CELL VOLUME 95.8 fL CALC (80.0-100.0); MEAN CORPUSCULAR HGB 30.7 pG CALC (26.0-32.0); NEUT# 12.48 thou/uL (1.82-7.42); RED BLOOD COUNT 4.01 mill/uL (4.70-6.10); RED CELL DISTRI WIDTH 15.1 % (11.5-15.5)
[2021-12-22 02:07] LABS: ALBUMIN 3.8 g/dL (3.2-5.0); CREATININE 2.1 mg/dL (0.7-1.3); POTASSIUM 3.1 mmol/l (3.5-5.1); TOTAL PROTEIN 6.8 g/dL (6.3-8.2)
[2021-12-22 02:09] LABS: BILIRUBIN, TOTAL 2.9 mg/dL (0.0-1.4)
[2021-12-22 02:12] LABS: ACT PARTIAL THROMBO TIME 42.6 SECONDS (20.0-32.5)
[2021-12-22 02:23] LABS: INTERNATIONAL NORMALIZED RATIO 2.2 RATIO (0.7-1.3); PROTHROMBIN TIME 22.2 SECONDS (9.0-12.5)
[2021-12-22 06:11] LABS: URINE BILIRUBIN - DIPSTICK NEGATIVE (NEGATIVE); URINE BLOOD DIPSTICK TRACE-INTACT (NEGATIVE); URINE COLOR YELLOW; URINE GLUCOSE - DIPSTICK NEGATIVE (NEGATIVE); URINE KETONE NEGATIVE (NEGATIVE); URINE LEUK ESTERASE NEGATIVE (NEGATIVE); URINE NITRITE - DIPSTICK NEGATIVE (Negative); URINE PROTEIN - DIPSTICK NEGATIVE (NEG-TRACE)
== END 2021-12-22 09:30 | disposition short-term general hospital (02) ==
LOC: ED 01:10
DX: J18.9 Pneumonia, unspecified organism (principal); R04.2 Hemoptysis; T45.515A Adverse effect of anticoagulants, initial encounter; S00.12XA Contusion of left eyelid and periocular area, initial encounter; S40.021A Contusion of right upper arm, initial encounter; S00.33XA Contusion of nose, initial encounter; E87.6 Hypokalemia; E16.2 Hypoglycemia, unspecified; I12.9 Hypertensive chronic kidney disease with stage 1 through stage 4 chronic kidney disease, or unspecified chronic kidney disease; Z99.81 Dependence on supplemental oxygen; N18.9 Chronic kidney disease, unspecified; I48.91 Unspecified atrial fibrillation; J44.9 Chronic obstructive pulmonary disease, unspecified; J96.91 Respiratory failure, unspecified with hypoxia; E11.22 Type 2 diabetes mellitus with diabetic chronic kidney disease; W18.30XA Fall on same level, unspecified, initial encounter; Y92.009 Unspecified place in unspecified non-institutional (private) residence as the place of occurrence of the external cause; Z79.4 Long term (current) use of insulin; Z79.01 Long term (current) use of anticoagulants; Z95.1 Presence of aortocoronary bypass graft; Z95.5 Presence of coronary angioplasty implant and graft; Z95.0 Presence of cardiac pacemaker; Z20.822 Contact with and (suspected) exposure to COVID-19

== ENCOUNTER 2021-12-29 14:39 | Inpatient (IN) | payer MEDICARE ==
[~2021-12-29] VITALS: Ht 177.8 cm; Wt 100.0 kg
[2021-12-29] VITALS (57 sets, daily range): BP systolic 76–161; BP diastolic 41–141
[~2021-12-29 14:39] MED LIST changes: -CARVEDILOL6.25 MG PO
[2021-12-29 15:11] LABS: HEMATOCRIT 39.2 % (39.0-50.0); HEMOGLOBIN 12.4 g/dl (14.0-18.0); IMMATURE GRANULOCYTES 0.3 % (0.0-5.0); MEAN CELL VOLUME 96.3 fL CALC (80.0-100.0); MEAN CORPUSCULAR HGB 30.5 pG CALC (26.0-32.0); MEAN CORPUSCULAR HGB CONC 31.6 g/dL CAL (32.0-36.0); NEUT# 10.43 thou/uL (1.82-7.42); RED BLOOD COUNT 4.07 mill/uL (4.70-6.10); RED CELL DISTRI WIDTH 16.4 % (11.5-15.5)
[2021-12-29 15:26] LABS: ALBUMIN 3.5 g/dL (3.2-5.0); BILIRUBIN, TOTAL 2.6 mg/dL (0.0-1.4); TOTAL PROTEIN 6.4 g/dL (6.3-8.2)
[2021-12-29 15:45] LABS: CREATININE 3.1 mg/dL (0.7-1.3)
[2021-12-29 15:46] LABS: POTASSIUM 4.6 mmol/l (3.5-5.1)
[2021-12-29 16:15] LABS: URINE BILIRUBIN - DIPSTICK NEGATIVE (NEGATIVE); URINE BLOOD DIPSTICK NEGATIVE (NEGATIVE); URINE COLOR YELLOW; URINE GLUCOSE - DIPSTICK NEGATIVE (NEGATIVE); URINE KETONE NEGATIVE (NEGATIVE); URINE LEUK ESTERASE NEGATIVE (NEGATIVE); URINE PROTEIN - DIPSTICK NEGATIVE (NEG-TRACE); URINE SPECIFIC GRAVITY 1.025; URINE UROBILINOGEN - DIPSTICK 0.2 E.U./dL (0.2)
[2021-12-29 16:21] LABS: URINE NITRITE - DIPSTICK NEGATIVE (Negative)
[2021-12-29 22:59] LABS: CREATININE 2.9 mg/dL (0.7-1.3); MAGNESIUM 2.3 mg/dL (1.6-2.3); POTASSIUM 4.6 mmol/l (3.5-5.1)
[2021-12-30] VITALS (82 sets, daily range): BP systolic 39–237; BP diastolic 12–147
[2021-12-30 06:18] LABS: HEMATOCRIT 37.5 % (39.0-50.0); MEAN CELL VOLUME 95.2 fL CALC (80.0-100.0); MEAN CORPUSCULAR HGB 30.5 pG CALC (26.0-32.0); RED BLOOD COUNT 3.94 mill/uL (4.70-6.10); RED CELL DISTRI WIDTH 16.5 % (11.5-15.5)
[2021-12-30 06:57] LABS: BILIRUBIN, TOTAL 2.7 mg/dL (0.0-1.4); POTASSIUM 4.7 mmol/l (3.5-5.1); TOTAL PROTEIN 5.2 g/dL (6.3-8.2)
[2021-12-30 07:07] LABS: ALBUMIN 2.7 g/dL (3.2-5.0)
[2021-12-30] MEDS ORDERED: TRAZODONE50 MG PO (11:51)
[2021-12-30] MEDS ORDERED: ALDACTONE25 MG PO (11:52)
[2021-12-30] MEDS ORDERED: XARELTO15 MG PO (11:53)
[2021-12-30] MEDS ORDERED: TRAMADOL HYDROC50 M1 PO (11:54)
[2021-12-30] MEDS ORDERED: K-TABS10 MEQ PO (11:56)
[2021-12-30 15:55] LABS: CREATININE 3.7 mg/dL (0.7-1.3); MAGNESIUM 2.6 mg/dL (1.6-2.3)
[2021-12-30 16:09] LABS: POTASSIUM 6.1 mmol/l (3.5-5.1)
== END 2021-12-31 10:09 | disposition expired | DRG 871 ==
LOC: ED 14:39 → ED-I 16:25 → ED 16:50 → ICU 16:51
PROVIDERS: Family Medicine; ADMIT Internal Medicine; ATTEND Internal Medicine
PROC: 05HM33Z Insertion of Infusion Device into Right Internal Jugular Vein, Percutaneous Approach (ICD-10-PCS; principal; 2021-12-29)
DX: A41.9 Sepsis, unspecified organism (principal); J18.9 Pneumonia, unspecified organism; I50.23 Acute on chronic systolic (congestive) heart failure; J96.02 Acute respiratory failure with hypercapnia; J96.01 Acute respiratory failure with hypoxia; N17.0 Acute kidney failure with tubular necrosis; R64 Cachexia; I13.0 Hypertensive heart and chronic kidney disease with heart failure and stage 1 through stage 4 chronic kidney disease, or unspecified chronic kidney disease; I24.8 Other forms of acute ischemic heart disease; E87.2 Acidosis; E87.1 Hypo-osmolality and hyponatremia; R65.20 Severe sepsis without septic shock; E11.22 Type 2 diabetes mellitus with diabetic chronic kidney disease; I95.9 Hypotension, unspecified; N18.30 Chronic kidney disease, stage 3 unspecified; E86.9 Volume depletion, unspecified; I27.20 Pulmonary hypertension, unspecified; I48.0 Paroxysmal atrial fibrillation; E78.5 Hyperlipidemia, unspecified; I25.5 Ischemic cardiomyopathy; I25.10 Atherosclerotic heart disease of native coronary artery without angina pectoris; M62.50 Muscle wasting and atrophy, not elsewhere classified, unspecified site; Z66 Do not resuscitate; Z79.82 Long term (current) use of aspirin; Z60.2 Problems related to living alone; Z68.31 Body mass index [BMI] 31.0-31.9, adult; Z95.810 Presence of automatic (implantable) cardiac defibrillator; Z87.891 Personal history of nicotine dependence; Z95.5 Presence of coronary angioplasty implant and graft; Z95.1 Presence of aortocoronary bypass graft; Z79.4 Long term (current) use of insulin; Z20.822 Contact with and (suspected) exposure to COVID-19